=== PATIENT | male | born 1975 | race Caucasian/White ===

== ENCOUNTER 2023-06-10 15:42 | Emergency (ER) | payer BC, MEDICAID ==
[2023-06-10] MEDS: cefTRIAXone 1 GM Vial IM ONE (16:53)
[2023-06-10] MEDS: Doxycycline 100 MG Cap PO ONE (16:54)
[2023-06-10] MEDS: Lidocaine 1% 5 ML VIAL INJECT ONE (16:56)
[2023-06-10] MEDS: Lidocaine 1% 5 ML VIAL ONE (16:56)
== END 2023-06-10 17:04 | disposition home or self-care (01) ==
LOC: JP.ED 15:42
DX: I87.2 Venous insufficiency (chronic) (peripheral) (principal); L03.115 Cellulitis of right lower limb; R82.71 Bacteriuria; E11.40 Type 2 diabetes mellitus with diabetic neuropathy, unspecified; Z91.030 Bee allergy status; K02.9 Dental caries, unspecified; F17.210 Nicotine dependence, cigarettes, uncomplicated; E66.01 Morbid (severe) obesity due to excess calories; Z68.43 Body mass index [BMI] 50.0-59.9, adult
CPT/HCPCS: 82947; 96372; 99283; A9270; J0696